=== PATIENT | male | born 1960 | race Caucasian/White ===

== ENCOUNTER 2024-10-31 18:16 | Emergency (ER) | payer SELFPAY ==
[2024-10-31] VITALS (14 sets, daily range): BP systolic 104–127; BP diastolic 60–72; PULSE 92–109; RESP 17–29; TEMP 36.9; O2SAT 94–100; BMI 36.0
--- NOTE | 2024-10-31 18:21 | XR_ITS ---
PROCEDURE INFORMATION: Exam: XR Chest Exam date and time: 10/31/2024 6:36 PM Age: 64 years old Clinical indication: Shortness of breath; Additional info: SOA TECHNIQUE: Imaging protocol: Radiologic exam of the chest. Views: 1 view. COMPARISON: No relevant prior studies available. FINDINGS: Lungs: Unremarkable. No consolidation. Pleural spaces: Unremarkable. No pleural effusion. No pneumothorax. Heart/Mediastinum: Unremarkable. No cardiomegaly. Bones/joints: Unremarkable. IMPRESSION: No acute findings.
--- NOTE | 2024-10-31 18:25 | ECG_ITS ---
APPROVED REPORT Exam: Resting ECG HR:100 bpm ECG Measurements Heart Rate 100 AXES MS 125 P 73 QRSd 93 QRS 66 QT 316 T 62 QTc 373 Conclusion SINUS TACHYCARDIA POSSIBLE RIGHT VENTRICULAR CONDUCTION DELAY [RSR (QR) IN V1/V2] ABNORMAL RHYTHM ECG Electronically signed by : ALYCE FUENTES, 10/31/2024 23:37:39
--- NOTE | 2024-10-31 18:37 | CT_ITS ---
PROCEDURE INFORMATION: Exam: CTA Chest With Contrast Exam date and time: 10/31/2024 7:45 PM Age: 64 years old Clinical indication: Shortness of breath; Additional info: SOB, edema, previous pe TECHNIQUE: Imaging protocol: Computed tomographic angiography of the chest with contrast. Exam focused on the arteries. 3D rendering (Not supervised by radiologist): MIP and/or 3D reconstructed images were created by the technologist. Radiation optimization: All CT scans at this facility use at least one of these dose optimization techniques: automated exposure control; mA and/or kV adjustment per patient size (includes targeted exams where dose is matched to clinical indication); or iterative reconstruction. Contrast material: ISOVUE; Contrast volume: 70 ml; Contrast route: INTRAVENOUS (IV); COMPARISON: CR XR CHEST PORTABLE 10/31/2024 6:36 PM FINDINGS: Pulmonary arteries: No central or segmental pulmonary arterial intraluminal filling defects identified Aorta: Mid aortic arch irregular, mural thrombus. No aneurysm or obvious dissection. Lungs: Chronic left basilar compressive subsegmental atelectasis. Faint perihilar ground-glass opacities. Pleural spaces: Complex, [id number], loculated left pleural effusion. Simple small right pleural effusion. No pneumothorax. Heart: Pericardial effusion with effusion thickness measuring up to 2.4 cm. Lymph nodes: Unremarkable. No enlarged lymph nodes. Bones/joints: Unremarkable. No acute fracture. Soft tissues: Subcutaneous edema. IMPRESSION: 1. No central or segmental pulmonary arterial embolism identified. 2. Pericardial effusion. Complex left pleural effusion with chronic compressive subsegmental atelectasis. Simple right pleural effusion. Mild perihilar ground-glass opacities favoring mild pulmonary edema/CHF. 3. Subcutaneous edema. Correlate with anasarca symptoms.
--- NOTE | 2024-10-31 18:39 | [facility].EDCP ---
Discharge Plan Disposition Patient Disposition: Xfer Short-Term Hosp Referrals Follow up/Referrals: Provider,Referral, [Primary Care Provider, Medical] - See instructions Clinical Impressions Clinical Impression: Empyema, Anemia, Hypercapnic acidosis, Anasarca, Hepatic congestion Stand Alone Forms Stand Alone Forms: Transfer Record - ED Print Language Print Language: Albanian Discharge ED Provider: Alex Cano General Chief Complaint: Shortness of Breath/Dyspnea Stated Complaint: SOA,feet swelling Time Seen by Provider: 10/31/24 18:19 Mode of Arrival: Wheelchair Source of Information: Patient Description of Symptoms (Recalled from ER Triage Doc. by RN): Patient presents to ED with c/o SOA for several days as well as BLE edema. Notes he takes Bumex daily and has not missed any doses. Patient denies ETOH use but family at bedside states he drinks alcohol daily. Patient denies chest pain. History of Present Illness HPI narrative: Patient is a 64-year-old male with past medical history of DVT with resultant PE previously on anticoagulation not on any anticoagulation currently, recent admission in June for pneumonia with chest tube placement at outside hospital who presents emergency department for evaluation of bilateral lower extremity swelling and shortness of breath. Onset was acute over the last 3 days. He does not have chest pain or shortness of breath. He also has bilateral lower extremity swelling and has been compliant with his Bumex. He only takes potassium otherwise takes no other medications. He previously took blood pressure medicine but was taken off of it. Previous smoker not currently, denies alcohol or IV drug use. No trauma. No other acute complaints at this time. Please note that above description of symptoms, in this electronic medical record under categorization of recalled from ER triage doctor by RN are reflective of an initial nursing assessment, however, is not reflective of my full history and physical exam that was personally taken and clarified. Consequentially, this preceding description of symptoms, which may include the patient's categorized chief complaint in the EMR, do not reflect my personal clinical impression, and the ultimate description of history of present illness and patient stated complaints should be deferred to this section of the note. Unless stated otherwise or congruent with this section of the note, additional signs, symptoms, or incongruence should be interpreted as inaccurate with my clinical impression. Related Data Allergies Allergy/AdvReac Type Severity Reaction Status Date / Time morphine Allergy Unknown Verified 10/31/24 18:32 allergy reaction PFSH PFSH Disclaimer: The information contained in this section may have been updated after the patient was seen, as this information can be updated by other users. Social History Smoking Status: Former smoker alcohol intake: never current occupational status: other Travel in the last 8 weeks?: None ROS Obtained: Yes Systems reviewed as appropriate & no additional complaints except as documented Physical Exam General General appearance: alert and in no apparent distress Head Head exam: atraumatic and normocephalic Eye Eye exam: Present PERRL and EOMI ENT ENT exam: Present mucous membranes moist Neck Neck exam: Present normal inspection Chest Chest inspection: Present normal inspection and symmetric chest wall rise Respiratory Respiratory exam: Present normal lung sounds bilaterally; Absent respiratory distress Cardiovascular Cardiovascular exam: Present regular rate and normal rhythm Abdominal Exam Abdominal exam: Present soft and other (Pitting edema throughout the abdomen 1+); Absent tenderness Extremities Exam Extremities exam: Present edema and other Neurological Exam Neurological exam: Present alert Psychiatric Psychiatric exam: Present normal affect Skin Skin exam: Present warm and dry HEART Score HEART Score HEART Score assessment performed?: Yes History (anamnesis): Slightly suspicious ECG: Non-specific disturbance Age: 45-65 years Risk factors: 1-2 risk factors Troponin: </= normal limit HEART Score: 3 Critical Care Critical Care Time Critical Care Time: Yes Attestation: On 10/31/24, the high probability of a clinically significant, sudden or life threatening deterioration of the following system(s) required my full and direct attention, intervention and personal management. The time I documented below is in addition to time spent performing reported procedures but includes the following listed in this critical care notation. Total Time Total Critical Care Time: 45 Medical Decision Making Rahul Inquiry Pt receiving controlled substance: No Vital Signs Vital Signs: 10/31/24 18:26 10/31/24 18:48 10/31/24 19:00 Temperature 98.5 F Temperature Source Oral Pulse Rate 98 H 92 H Pulse Rate [Right] 109 H Respiratory Rate 29 H 21 17 Blood Pressure 114/66 Blood Pressure [Right Arm] 119/66 Blood Pressure Mean Blood Pressure Mean [Right Arm] 83 Blood Pressure Source [Right Arm] Automatic Cuff Blood Pressure Position [Right Arm] Sitting 02 Sat by Pulse Oximetry 96 95 95 Oxygen Delivery Method Room Air Room Air Fraction of Inspired Oxygen 10/31/24 19:30 10/31/24 20:00 10/31/24 20:25 Temperature Temperature Source Pulse Rate 93 H 96 H Pulse Rate [Right] Respiratory Rate 21 19 Blood Pressure 118/66 127/67 Blood Pressure [Right Arm] Blood Pressure Mean Blood Pressure Mean [Right Arm] Blood Pressure Source [Right Arm] Blood Pressure Position [Right Arm] 02 Sat by Pulse Oximetry 98 100 Oxygen Delivery Method Fraction of Inspired Oxygen 30 10/31/24 20:30 10/31/24 21:00 10/31/24 21:30 Temperature Temperature Source Pulse Rate 95 H 95 H 105 H Pulse Rate [Right] Respiratory Rate 20 20 Blood Pressure 111/69 112/72 120/69 Blood Pressure [Right Arm] Blood Pressure Mean 83 79 Blood Pressure Mean [Right Arm] Blood Pressure Source [Right Arm] Blood Pressure Position [Right Arm] 02 Sat by Pulse Oximetry 100 100 98 Oxygen Delivery Method Fraction of Inspired Oxygen 10/31/24 22:00 Temperature Temperature Source Pulse Rate 97 H Pulse Rate [Right] Respiratory Rate Blood Pressure 112/60 Blood Pressure [Right Arm] Blood Pressure Mean Blood Pressure Mean [Right Arm] Blood Pressure Source [Right Arm] Blood Pressure Position [Right Arm] 02 Sat by Pulse Oximetry 98 Oxygen Delivery Method Fraction of Inspired Oxygen Lab Data Labs: Lab Results 10/31/24 18:27: VBG pH 7.24 L, VBG pCO2 52.2 H, VBG pO2 35.9, VBG HCO3 21.6 L, VBG Total CO2 23.2, VBG O2 Saturation 63.2, VBG Base Excess -5.9 L, VBG Lactic Acid 1.4 10/31/24 18:41: WBC 14.9 H, RBC 2.77 L, Hgb 7.5 L, Hct 25.0 L, MCV 90.3, MCH 27.1, MCHC 30.0 L, RDW 19.3 H, Plt Count 469 H, MPV 8.7, Neut % (Auto) 75.6, Lymph % (Auto) 12.0, [place] % (Auto) 6.0, Eos % (Auto) 1.0, Baso % (Auto) 0.4, Neut # (Auto) 11.2 H, Lymph # (Auto) 1.8, [place] # (Auto) 0.9, Eos # (Auto) 0.2, Baso # (Auto) 0.1, Total Counted 100, Neutrophils % (Manual) 72, Lymphocytes % (Manual) 22, Monocytes % (Manual) 4, Eosinophils % (Manual) 2, Platelet Estimate Slight increase, Hypochromasia 1+, PT 12.4, INR 1.13 H, APTT 23.6, D-Dimer 3.34 H, Sodium 133 L, Potassium 5.4 H, Chloride 108 H, Carbon Dioxide 23, Anion Gap 7.4, BUN 65 H, Creatinine 2.10 H, Estimated Creat Clear 49, Estimated GFR 32 L, Est GFR ( Amer) 39 L, Glucose 101 H, Lactate 0.8, Calcium 8.3 L, Magnesium 1.5 L, Total Bilirubin 0.8, Direct Bilirubin 0.8 H, AST 42, ALT 23, Alkaline Phosphatase 191 H, Ammonia < 9 L, Troponin I 0.02, NT-Pro-B Natriuret Pep 8280 H, Total Protein 6.2 L, Albumin 2.3 L, Globulin 3.9 H, Albumin/Globulin Ratio 0.6 L, Lipase 83, Plasma/Serum Alcohol < 10 10/31/24 20:56: Urine Color Yellow, Urine Appearance Sl cloudy, Urine pH 5.5, Ur Specific [place] 1.015, Urine Protein 2+ A, Urine Glucose (UA) Negative, Urine Ketones Negative, Urine Blood Trace-l, Urine Nitrate Negative, Urine Bilirubin Negative, Urine Urobilinogen 0.2, Ur Leukocyte Esterase Negative, Urine RBC Occasional, Urine WBC 3-5, Ur Squamous Epith Cells 5-10, Amorphous Sediment 3+, Urine Bacteria 1+, Urine Mucus 1+ 10/31/24 18:41 10/31/24 18:41 Response Orders (Tests/Meds): ED MEDICATIONS Generic Name Dose Route Start Last Admin Trade Name Freq PRN Reason Stop Dose Admin Vancomycin HCl 2,500 mg/ 500 mls @ 250 mls/hr 10/31/24 20:30 10/31/24 20:40 Sodium Chloride IV 10/31/24 22:29 250 mls/hr ONCE ONE Administration Miscellaneous 1 each 10/31/24 20:15 Vancomycin Consult Request NOTAPPLIC 11/30/24 20:14 CONSULT [facility]Y [facility] Discontinued Medications Generic Name Dose Route Start Last Admin Trade Name Freq PRN Reason Stop Dose Admin Bumetanide 2 mg 10/31/24 20:07 10/31/24 20:24 Bumetanide 1mg/4ml Vial IV 10/31/24 20:08 2 mg ONCE ONE Administration Piperacillin Sod/Tazobactam 100 mls @ 200 mls/hr 10/31/24 20:17 10/31/24 20:39 Sod 4.5 gm/ Sodium Chloride IV 10/31/24 20:46 200 mls/hr ONCE ONE Administration Iopamidol 70 ml 10/31/24 19:45 10/31/24 19:45 Iopamidol-370 (76%);100ml Bottle IV 10/31/24 19:46 70 ml ONCE ONE Administration Sodium Chloride 10 ml 10/31/24 19:45 10/31/24 19:45 Sodium Chloride 0.9% 10ml Syr (Rad Only) IV 10/31/24 19:46 10 ml ONCE ONE Administration Sodium Chloride 50 ml 10/31/24 19:45 10/31/24 19:45 0.9 % Sodium Chloride 50 Ml Vial IV 10/31/24 19:46 50 ml ONCE ONE Administration ORDERS Category Date Time Status CT abdomen pelvis w con Stat Cat Scan 10/31/24 19:[address] angio chest PE protocol Stat Cat Scan 10/31/24 18:37 Completed POCUS Point of Care (ER Only) Stat Exams 10/31/24 18:26 Completed XR chest portable Stat Exams 10/31/24 18:21 Completed Ammonia Stat Lab 10/31/24 18:41 Completed Bilirubin,Direct Stat Lab 10/31/24 18:41 Completed Complete Blood Count Auto Diff Stat Lab 10/31/24 18:41 Completed Comprehensive Metabolic Panel Stat Lab 10/31/24 18:41 Completed D-Dimer Stat Lab 10/31/24 18:41 Completed Ethyl Alcohol Stat Lab 10/31/24 18:41 Completed Lactic Acid Stat Lab 10/31/24 18:41 Completed Lipase Stat Lab 10/31/24 18:41 Completed Magnesium Stat Lab 10/31/24 18:41 Completed NT Pro Brain Natriuretic Pep. Stat Lab 10/31/24 18:41 Completed PT INR [Prothrombin Time INR] Stat Lab 10/31/24 18:41 Completed PTT [Activated Partial Thrombo Time] Stat Lab 10/31/24 18:41 Completed Troponin I Q3H Lab 10/31/24 21:38 Received Troponin I Q3H Lab 11/01/24 00:30 Ordered Troponin I Stat Lab 10/31/24 18:41 Completed Urinalysis and Microscopic Stat Lab 10/31/24 20:56 Completed Blood Culture Stat Micro 10/31/24 20:20 Received VBG [Venous Blood Gas] Stat RT 10/31/24 18:27 Completed ECG Data Tracing #1: ECG Narrative: Independently inter by me rate is 100, rhythm is regular, axis is normal, no ST elevation in anatomical contiguous leads, QTc 373. MDM Narrative Medical Decision Narrative: In summary patient is 64-year-old male with past medical history Curtis above presents emergency department for evaluation of shortness of breath, bilateral lower extremity swelling in the setting of previous pneumonia requiring chest tube, previous pulmonary embolism not currently on anticoagulation. Patient is hemodynamically stable upon arrival tachypneic and tachycardic, normal blood pressure. Patient has anasarca on exam differential includes heart failure, kidney failure, renal failure. He also has spider angiomas and slight discoloration of his skin for which my suspicion for liver failure is high. [id number] ultrasound at bedside shows pulmonary edema, grossly normal to slightly decreased ejection fraction with normal EPSS. Differential also includes pulmonary embolism. Workup will be conducted with broad hematologic labs, CT angio pulmonary embolism protocol, chest x-ray. After initial hematologic labs are back diuresis plan will be decided. Initial workup reviewed by me hematologic labs remarkable for leukocytosis 14.9, hemoglobin 7.5 with unknown baseline. INR is 1.13 D-dimer significantly elevated 3.34. Patient has a slight hypercarbic acidosis, creatinine 2.91 and unknown baseline significantly elevated BNP 8280 for which a large dose of Bumex will be given. CT imaging of the chest informally visualized by me, no large pulmonary embolism, there is a layering pleural effusion on the right which I suspect is likely due to his heart failure and volume overload however there is a complex pleural effusion on the left that appears to be loculated. Given his history of reported pneumonia requiring chest tube I have concern for empyema for which broad-spectrum antibiotics with vancomycin and Zosyn will be initiated blood cultures will be obtained. Patient meets criteria for sepsis with tachycardia and elevated white blood cell count however he is so volume overloaded that crystalloid bolus will be completely deferred at this time. Upon repeat evaluation family provides additional history, he has had some urinary and bowel incontinence although he will not talk about it, they are concerned for possible alcohol consumption chronically although patient denies. Patient denies black or bloody bowel movements. Patient slight hypercarbic acidosis he was tolerating a low BiPAP settings well. I discussed case with radiology they are concerned that there is a sinus tract with this complex pleural effusion. Given this the case was discussed with [facility] Dr. Corea and unfortunately they are on high-level divert and unable to take care of the patient at this time. The case was subsequently discussed with [facility] Dr. Wood who graciously accepted patient for transfer for continued evaluation at this time. Procedure: Procedure performed was [id number] ultrasound. Procedure performed by Alex Cano. Phased-array probe for cardiac ultrasound was conducted and parasternal long axis was identified normal EPSS minimally decreased ejection fraction small pericardial effusion. Adjacent lung borden have scattered B-lines bilaterally. Images were technically adequate and necessitated further imaging and were saved to a permanent archive. Patient tolerated procedure well.
[2024-10-31 18:52] LABS: Lactate Venous 1.4 mmol/L (0.4-2.0); VBG Base Excess -5.9 mmol/L (-2.4-2.3); VBG HCO3 21.6 mmol/L (23-30); VBG Oxygen Saturation 63.2 % (50-70); VBG PCO2 52.2 mmol/L (35-51); VBG PH 7.24 mmol/L (7.31-7.41); VBG PO2 35.9 mmol/L (28-40); VBG Total CO2 23.2 mmol/L (23-27)
[2024-10-31 19:03] LABS: Basophils # 0.1 K/mm3 (0-0.2); Basophils % 0.4 % (0.1-2.0); Eosinophils # 0.2 Kmm3 (0.0-0.4); Hemoglobin 7.5 g/dL (14.1-18.0); Immature Granulocytes # 0.74 10^3uL; Lymphocytes # 1.8 K/mm3 (0.7-4.5); Mean Corpuscular Hemoglobin 27.1 pg (27.0-31.2); Mean Corpuscular Volume 90.3 fl (80-94); Mean Platelet Volume 8.7 fl (7.4-10.4); Monocytes # 0.9 K/mm3 (0.1-1.0); Neutrophils # 11.2 K/mm3 (1.8-7.8); Neutrophils % 75.6 % (37.0-80.0); Nucleated Red Blood Cells # 0.02 10^3/uL; Nucleated Red Blood Cells % 0.1 %; Platelet Count 469 K/mm3 (142-424); Red Blood Count 2.77 M/mm3 (4.60-6.20); Red Cell Distribution Width 19.3 % (11.5-17.5); Red Cell Distribution Width-SD 62.8 fL; White Blood Count 14.9 K/mm3 (4.8-10.8)
[2024-10-31 19:08] LABS: INR 1.13 (0.9-1.1); Prothrombin Time 12.4 seconds (10.1-12.5)
[2024-10-31 19:10] LABS: Ammonia < 9 umol/L (9-30)
--- NOTE | 2024-10-31 19:12 | CT_ITS ---
PROCEDURE INFORMATION: Exam: CT Abdomen And Pelvis With Contrast Exam date and time: 10/31/2024 7:45 PM Age: 64 years old Clinical indication: Other: Anasarca, intermittent incontinence TECHNIQUE: Imaging protocol: Computed tomography of the abdomen and pelvis with contrast. 3D rendering (Not supervised by radiologist): MIP and/or 3D reconstructed images were created by the technologist. Radiation optimization: All CT scans at this facility use at least one of these dose optimization techniques: automated exposure control; mA and/or kV adjustment per patient size (includes targeted exams where dose is matched to clinical indication); or iterative reconstruction. Contrast material: ISOVUE; Contrast volume: 70 ml; Contrast route: IV; COMPARISON: CR XR CHEST PORTABLE 10/31/2024 6:36 PM FINDINGS: Liver: Periportal edema. No mass. Gallbladder and biliary ducts: Surgically absent gallbladder. No biliary ductal dilatation. Pancreas: Normal. No ductal dilation. Spleen: Normal. No splenomegaly. Adrenal glands: Normal. No mass. Kidneys and ureters: No nephroureterolithiasis or hydroureter. Stomach and bowel: No significant colonic stool burden. Nonobstructive pattern. Appendix: No evidence of appendicitis. Intraperitoneal space: Diffuse mesenteric/omental edema. Tiny dependent ascites. Vasculature: Unremarkable. No abdominal aortic aneurysm. Lymph nodes: Shotty retroperitoneal lymph nodes without lymphadenopathy. Urinary bladder: Unremarkable as visualized. Reproductive: Unremarkable as visualized. Bones/joints: Diffuse osteopenia. No acute findings. Soft tissues: Diffuse subcutaneous edema. IMPRESSION: 1. Anasarca. 2. No significant colonic stool burden. 3. Diffuse hepatic congestion.
[2024-10-31 19:14] LABS: Lactic Acid 0.8 mmol/L (0.7-2.1); Magnesium 1.5 mg/dl (1.6-2.3)
[2024-10-31 19:15] LABS: Alanine Aminotransferase 23 U/L (12-78); Albumin Level 2.3 g/dl (3.5-5.0); Albumin/Globulin Ratio 0.6 (1.1-1.8); Alkaline Phosphatase 191 U/L (38-126); Anion Gap 7.4 mEq/L (5-15); Aspartate Amino Transferase 42 U/L (17-59); Bilirubin,Direct 0.8 mg/dl (0.0-0.4); Bilirubin,Total 0.8 mg/dl (0.2-1.3); Blood Urea Nitrogen 65 mg/dl (9-20); Calcium 8.3 mg/dl (8.4-10.2); Carbon Dioxide 23 mmol/L (22.0-30.0); Chloride 108 mmol/L (98-107); Creatinine Clearance Estimated 49 mL/min (50-200); Estimated Glomerular Filt Rate 32 ml/min (>60); GFR (African American) 39 ML/MIN (>60); Globulin 3.9 g/dL (1.3-3.2); Glucose 101 mg/dl (74-100); Lipase 83 U/L (23-300); Potassium 5.4 mmoL/L (3.5-5.1); Sodium 133 mmol/L (136-145); Total Protein,Serum 6.2 g/dl (6.3-8.2)
[2024-10-31 19:24] LABS: NT Pro Brain Natriuretic Pep. 8280 pg/mL (0-125)
[2024-10-31 19:26] LABS: Ethyl Alcohol < 10 mg/dl (0-10)
[2024-10-31 19:27] LABS: MANUAL DIFFERENTIAL MANUAL DIFFERENTIAL (MANUAL DIFF); Troponin I 0.02 ng/ml (0.00-0.034)
[2024-10-31 19:32] LABS: Activated Partial Thrombo Time 23.6 seconds (22.8-30.6)
--- NOTE | 2024-10-31 19:33 | PC.NURSE ---
PT transported to CT via radiology staff.
[2024-10-31 19:45] LABS: D-Dimer 3.34 ug/mL (0.0-0.5)
[2024-10-31] MEDS: 0.9 % SODIUM CHLORIDE 50 ML VIAL IV (19:45)
[2024-10-31] MEDS: SODIUM CHLORIDE 0.9% 10ML SYR (RAD ONLY) 10 ML IV (19:45)
[2024-10-31] MEDS: IOPAMIDOL-370 (76%);100ML BOTTLE 70 ML IV (19:45)
--- NOTE | 2024-10-31 19:51 | PC.NURSE ---
PT transported back to room via bed with assistance of radiology staff.
[2024-10-31 20:01] LABS: Eosinophils % 2 % (0-3); Lymphocytes % 22 % (10-50); Monocytes % 4 % (2-9); Neutrophils % 72 % (42-76); Total Cells Counted 100
[2024-10-31 20:11] LABS: Hypochromasia 1+
--- NOTE | 2024-10-31 20:11 | PC.NURSE ---
RT called for bipap placement
[2024-10-31 20:12] LABS: Platelet Estimate Slight Increase
--- NOTE | 2024-10-31 20:22 | PC.NURSE ---
[facility] called for transfer
--- NOTE | 2024-10-31 20:23 | PC.NURSE ---
Radiology called to [facility]
[2024-10-31] MEDS: BUMETANIDE 1MG/4ML VIAL 2 MG IV (20:24)
--- NOTE | 2024-10-31 20:37 | PC.NURSE ---
Called [facility] for a transfer said they would call back with CT surgery
[2024-10-31] MEDS: PIPERACILLIN/TAZO 4.5 GM in 0.9 % SODIUM CHLORIDE 100 ML IV (20:39)
[2024-10-31] MEDS: VANCOMYCIN HCL 2,500 MG in 0.9 % SODIUM CHLORIDE 500 ML 250 MG IV (20:40)
[2024-10-31 20:59] LABS: Microscopic, Urine URINE MICROSCOPIC (MICROSCOPIC)
[2024-10-31 21:16] LABS: Appearance,Urine SL CLOUDY (Clear); Bilirubin,Urine Negative (Negative); Blood, Urine TRACE-L (Negative); Color,Urine YELLOW (Yellow); Glucose,Urine (UA) Negative (Negative); Ketones,Urine Negative (Negative); Leukocyte Esterase,Urine Negative (Negative); Nitrate,Urine Negative (Negative); PH,Urine 5.5 (5.0-8.5); Protein,Urine 2+ (Negative); Specific Gravity, Urine 1.015 (1.005-1.030); Urobilinogen,Urine 0.2 EU/dl (0.2)
[2024-10-31 21:36] LABS: Amorphous Sediment,Urine 3+ /lpf; Bacteria,Urine 1+ /lpf; Mucus,Urine 1+ /lpf; RBC,Urine Occasional #/hpf (0-3)
--- NOTE | 2024-10-31 22:26 | PC.NURSE ---
spoke with MD regarding kauffman insertion, due to patient being continent at this time and using the urinal for accurate I&Os, kauffman not indicated at this time
[2024-10-31 22:33] LABS: Troponin I 0.01 ng/ml (0.00-0.034)
--- NOTE | 2024-10-31 23:37 | PC.NURSE ---
spoke with [facility] and they are waiting for a room to be cleaned before the patient can be assigned a bed. patient resting on bipap comfortably
[2024-11-01] VITALS (9 sets, daily range): BP systolic 108–118; BP diastolic 64–77; PULSE 84–106; RESP 14–18; TEMP 36.4; O2SAT 94–99
[2024-11-01 01:53] LABS: Troponin I < 0.01 ng/ml (0.00-0.034)
--- NOTE | 2024-11-01 02:06 | P.EN_ITS ---
Had been contacted by ER physician to accept the patient up to stepdown. [facility] was still waiting to have the room cleaned and the patient had been in the ER an extended period of time After seeing the patient and getting ready to put admission orders in the ER received phone call that [facility] was ready to accept the patient so this transfer was not done No charges will be placed as the patient remained in the emergency room awaiting transfer
--- NOTE | 2024-11-01 03:06 | PC.NURSE ---
pt family contacted and given room number at [facility]
== END 2024-11-01 03:09 | disposition short-term general hospital (02) ==
LOC: ER 11-01 01:53 → ICU 11-01 02:10 → ER 11-01 02:26
PROVIDERS: Physician Assistant; Emergency Provider Emergency Medicine
DX: E87.29 Other acidosis (principal); J86.9 Pyothorax without fistula; D64.9 Anemia, unspecified; R60.1 Generalized edema; R06.02 Shortness of breath; K76.1 Chronic passive congestion of liver; Z87.891 Personal history of nicotine dependence
CPT/HCPCS: 71045; 71275; 74177; 80053; 80320; 81001; 82140; 82248; 82803; 83605; 83690; 83735; 83880; 84484; 85007; 85025; 85027; 85378; 85610; 85730; 87040; 93005; 96365; 96366; 96375; 99291; J1939; J2543; J3370; J7040; Q9967